=== PATIENT | female | born 1955 | race Caucasian/White ===

== ENCOUNTER 2025-08-13 12:02 | Inpatient (IN) | payer MEDICARE ==
[2025-08-13] MEDS ORDERED: Melatonin 3 MG TAB PO PRN (13:18)
[2025-08-13] MEDS ORDERED: Nitroglycerin 0.4 MG TAB (25 Tab Bottle) SL PRN (13:18)
[2025-08-13] MEDS ORDERED: Senokot S 8.6-50 MG TAB PO PRN (13:18)
[2025-08-13 13:26] VITALS: BMI 34.1
[2025-08-13] MEDS: Furosemide 20 MG (2 mL) VIAL SLOW IVP SCH (14:46)
[2025-08-13] MEDS: Acetaminophen 325 MG TAB PO PRN (15:06)
[2025-08-13] MEDS: Ketorolac Tromethamine 30 MG (1 mL) VIAL IVP PRN (21:03)
[2025-08-13] MEDS: Famotidine 20 MG TAB PO SCH (21:03)
[2025-08-14 04:26] LABS: #Basophils 0.04 10x3/uL (0.0-0.2); #Eosinophils 0.06 10x3/uL (0.0-0.7); #Monocytes 1.56 10x3/uL (0.11-0.59); #Neutrophils 11.44 10x3/uL (1.40-6.50); %Basophils 0.3 % (0.0-1.0); %Eosinophils 0.4 % (0.0-10.0); %Lymphocytes 7.5 % (21.0-51.0); %Monocytes 11.0 % (0.0-10.0); %Neutrophils 80.4 % (42.0-75.0); Hematocrit 38.6 % (36.0-47.0); Hemoglobin 12.9 g/dL (12.0-16.0); Mean Corpuscular Hemoglobin 29.5 pg (27.0-31.0); Mean Corpuscular Volume 88.1 fL (78.0-98.0); Platelet Count 239 10x3/uL (130-400); Red Blood Cell (RBC) Count 4.38 mill/uL (4.20-5.40); White Blood Cell (WBC) Count 14.23 10x3/uL (4.8-10.8)
[2025-08-14 05:00] LABS: Anion Gap 14 mmol/L (10-20); BUN (Urea Nitrogen) 24 mg/dL (9.8-20.1); Calc. Creatinine Clearance 126 mL/min (70-130); Calcium 9.2 mg/dL (7.8-10.44); Carbon Dioxide 23 mmol/L (23-31); Cardiac Risk 2.9 (Less than 4.5); Chloride 100 mmol/L (98-107); Cholesterol 145 mg/dl (< 200 Desired); Glucose 113 mg/dL (83-110); HDL Cholesterol 50 mg/dL (>60 Neg Risk); LDL Cholesterol, Calculated 83 mg/dL; Potassium 3.3 mmol/L (3.5-5.1); Sodium 134 mmol/L (136-145); Triglycerides 62 mg/dL (Less than 150)
[2025-08-14] MEDS ORDERED: Magnesium Sulfate In Water 4 GM in Premix 1 BAG IVPB PRN (08:00)
[2025-08-14] MEDS ORDERED: Potassium Chloride 20 MEQ in Premix 1 BAG IVPB PRN (08:00)
[2025-08-14] MEDS ORDERED: PHOS-NAK 1 PKT PACK PO PRN (08:00)
[2025-08-14] MEDS ORDERED: Electrolyte Replacement Protocol 1 EACH FS SCH (08:00)
[2025-08-14] MEDS: FLU (Fluad Triv) 25-26 (65UP)PF 45 MCG/0.5 ML Syringe IM ONE (09:39)
[2025-08-14] MEDS: Aspirin Chewable 81 MG TAB PO SCH (09:39)
[2025-08-14 12:00] LABS: Glucose, Urine (Dipstick) Negative (Negative); Leukocyte Negative (Negative); Protein, Urine (Dipstick) Negative (Neg-Trace); Specific Gravity, Urine 1.010 (1.005-1.030)
[2025-08-14 12:12] LABS: Bacteria/HPF None Seen HPF (None Seen); CAUTI Indications for Culture Dysuria,urgency,freq; RBC/HPF 0-3 HPF (0-3); WBC/HPF 0-3 HPF (0-3)
[2025-08-14 12:13] LABS: Urine Culture Reflex No No
[2025-08-14 14:33] LABS: Potassium 3.7 mmol/L (3.5-5.1)
[2025-08-15 05:31] LABS: #Basophils 0.09 10x3/uL (0.0-0.2); #Eosinophils 0.28 10x3/uL (0.0-0.7); #Monocytes 1.54 10x3/uL (0.11-0.59); #Neutrophils 6.88 10x3/uL (1.40-6.50); %Basophils 0.8 % (0.0-1.0); %Eosinophils 2.6 % (0.0-10.0); %Lymphocytes 18.6 % (21.0-51.0); %Monocytes 14.1 % (0.0-10.0); %Neutrophils 63.3 % (42.0-75.0); Anion Gap 18 mmol/L (10-20); BUN (Urea Nitrogen) 19 mg/dL (9.8-20.1); Calc. Creatinine Clearance 122 mL/min (70-130); Calcium 8.9 mg/dL (7.8-10.44); Carbon Dioxide 19 mmol/L (23-31); Chloride 104 mmol/L (98-107); Glucose 79 mg/dL (83-110); Hematocrit 40.4 % (36.0-47.0); Hemoglobin 13.1 g/dL (12.0-16.0); Magnesium 1.9 mg/dL (1.6-2.6); Mean Corpuscular Hemoglobin 28.6 pg (27.0-31.0); Mean Corpuscular Volume 88.2 fL (78.0-98.0); Platelet Count 164 10x3/uL (130-400); Potassium 3.9 mmol/L (3.5-5.1); Red Blood Cell (RBC) Count 4.58 mill/uL (4.20-5.40); Sodium 137 mmol/L (136-145); White Blood Cell (WBC) Count 10.89 10x3/uL (4.8-10.8)
[2025-08-15] MEDS: Furosemide 40 MG (4 mL) VIAL SLOW IVP SCH (15:07)
[2025-08-15] MEDS ORDERED: Communication Order-Pharmacy FS SCH (17:45)
[2025-08-16 05:56] LABS: #Basophils 0.11 10x3/uL (0.0-0.2); #Eosinophils 0.49 10x3/uL (0.0-0.7); #Monocytes 1.11 10x3/uL (0.11-0.59); #Neutrophils 4.94 10x3/uL (1.40-6.50); %Basophils 1.2 % (0.0-1.0); %Eosinophils 5.5 % (0.0-10.0); %Lymphocytes 25.1 % (21.0-51.0); %Monocytes 12.3 % (0.0-10.0); %Neutrophils 55.0 % (42.0-75.0); Hematocrit 41.3 % (36.0-47.0); Hemoglobin 13.1 g/dL (12.0-16.0); Mean Corpuscular Hemoglobin 28.9 pg (27.0-31.0); Mean Corpuscular Volume 91.2 fL (78.0-98.0); Platelet Count 236 10x3/uL (130-400); Red Blood Cell (RBC) Count 4.53 mill/uL (4.20-5.40); White Blood Cell (WBC) Count 8.99 10x3/uL (4.8-10.8)
[2025-08-16 06:13] LABS: Anion Gap 15 mmol/L (10-20); BUN (Urea Nitrogen) 24 mg/dL (9.8-20.1); Calc. Creatinine Clearance 101 mL/min (70-130); Carbon Dioxide 25 mmol/L (23-31); Chloride 103 mmol/L (98-107); Potassium 3.2 mmol/L (3.5-5.1); Sodium 140 mmol/L (136-145)
[2025-08-16 06:14] LABS: Calcium 8.7 mg/dL (7.8-10.44); Glucose 79 mg/dL (83-110)
[2025-08-16] MEDS: Furosemide 20 MG (2 mL) VIAL SLOW IVP SCH (06:45)
[2025-08-16] MEDS ORDERED: Adenosine 6 mg (2 mL) VIAL ONE (06:50)
[2025-08-16] MEDS ORDERED: Lidocaine 1% (PF) 30 ML VIAL ONE (06:51)
[2025-08-16] MEDS ORDERED: Heparin 10,000 UNITS/ 10 ML VIAL ONE (06:51)
[2025-08-16] MEDS ORDERED: Nitroglycerin 50 MG/250 ML BOT 250 ML ONE (06:51)
[2025-08-16] MEDS ORDERED: Enoxaparin 100 MG (1 mL) SYRINGE SC SCH (07:00)
[2025-08-16 11:39] LABS: Potassium 4.1 mmol/L (3.5-5.1)
[2025-08-16] MEDS ORDERED: Iopamidol 370 76% 100 ML VIAL ONE (15:52)
[2025-08-16] MEDS: Sacubitril 24MG/Valsartan 26 MG TAB PO SCH (20:21)
[2025-08-17 05:00] LABS: Anion Gap 12 mmol/L (10-20); BUN (Urea Nitrogen) 18 mg/dL (9.8-20.1); Calc. Creatinine Clearance 132 mL/min (70-130); Calcium 8.1 mg/dL (7.8-10.44); Carbon Dioxide 24 mmol/L (23-31); Chloride 109 mmol/L (98-107); Glucose 82 mg/dL (83-110); Potassium 4.3 mmol/L (3.5-5.1); Sodium 141 mmol/L (136-145)
[2025-08-17] MEDS: Metoprolol Succinate XL 25 MG ER.TAB PO SCH (08:54)
[2025-08-17] MEDS ORDERED: Azelastine 137 MCG/NASAL Spray 30 ML NS PRN ×2 (10:27→10:30)
[2025-08-17] MEDS ORDERED: Albuterol 200 PUFF (6.7GM INHALER) INH PRN (10:29)
[2025-08-18 04:44] LABS: Anion Gap 7 mmol/L (10-20); BUN (Urea Nitrogen) 17 mg/dL (9.8-20.1); Calc. Creatinine Clearance 137 mL/min (70-130); Calcium 8.5 mg/dL (7.8-10.44); Carbon Dioxide 24 mmol/L (23-31); Chloride 110 mmol/L (98-107); Glucose 88 mg/dL (83-110); Magnesium 2.0 mg/dL (1.6-2.6); Potassium 3.8 mmol/L (3.5-5.1); Sodium 137 mmol/L (136-145)
[2025-08-18] MEDS: Dapagliflozin Propanediol 10 MG TAB PO SCH (08:48)
[2025-08-18 15:42] VITALS: BP 103/58; TEMP 97.7
== END 2025-08-18 18:30 | disposition home or self-care (01) | DRG 280 ==
LOC: 2NO 12:57
PROVIDERS: ADMIT Internal Medicine; ATTEND Internal Medicine
PROC: 4A023N7 Measurement of Cardiac Sampling and Pressure, Left Heart, Percutaneous Approach (ICD-10-PCS; principal; 2025-08-16)
PROC: B2161ZZ Fluoroscopy of Right and Left Heart using Low Osmolar Contrast (ICD-10-PCS; 2025-08-16)
PROC: B2111ZZ Fluoroscopy of Multiple Coronary Arteries using Low Osmolar Contrast (ICD-10-PCS; 2025-08-16)
DX: I11.0 Hypertensive heart disease with heart failure (principal); I50.41 Acute combined systolic (congestive) and diastolic (congestive) heart failure; I21.A1 Myocardial infarction type 2; K21.9 Gastro-esophageal reflux disease without esophagitis; M19.90 Unspecified osteoarthritis, unspecified site; E66.01 Morbid (severe) obesity due to excess calories; D72.829 Elevated white blood cell count, unspecified; Z98.51 Tubal ligation status; Z82.49 Family history of ischemic heart disease and other diseases of the circulatory system; Z88.5 Allergy status to narcotic agent; Z90.49 Acquired absence of other specified parts of digestive tract; Z98.890 Other specified postprocedural states; Z98.84 Bariatric surgery status; Z98.42 Cataract extraction status, left eye; Z87.891 Personal history of nicotine dependence; E87.6 Hypokalemia; Z79.899 Other long term (current) drug therapy; Z79.82 Long term (current) use of aspirin
CPT/HCPCS: 36415; 80048; 80061; 81001; 83735; 83880; 84100; 84145; 85025; 93005; 93010; 93306; 93458; 94760; 99152; C1769; C1894; J0153; J0461; J1644; J1885; J1940; J2003; J3010; J7030; Q9967